=== PATIENT | male | born 1985 | race Caucasian/White ===

== ENCOUNTER 2021-02-24 09:47 | Outpatient (CLI) | payer OTHER, SELFPAY ==
--- NOTE | 2021-02-24 09:55 | MR_ITS ---
WS: [id number] MRI THORACIC SPINE noncontrast. HISTORY: BACK PAIN COMPARISON: None available. TECHNIQUE: Multiplanar sequences are performed in sagittal and axial planes. Normal posterior thoracic alignment. Mild disc space narrowing and desiccation at T8-9 and T9-10. No marrow edema or fractures. Signal within the cord is normal. T1-2: Normal. T2-3: Normal. T3-4: Normal. T4-5: Normal. T5-6: Normal. T6-7: Normal. T7-8: Normal. T8-9: Central disc protrusion is shallow with no cord contact. T9-10: Moderate size central disc protrusion extends to the LEFT also. Mild bilateral foraminal narr owing and mild facet arthritis. No central stenosis. T10-11: Small LEFT paracentral disc protrusion and mild bilateral facet arthritis. Mild foraminal na rrowing. T11-12: Very mild facet joint arthritis. Paravertebral soft tissues are normal. MR/MR thoracic spin wo con* [id number] IMPRESSION: 1. Degenerative disc disease at T8-9 and T9-10. 2. Small disc protrusions at T8-9, T9-T10 and T10-11 as above. 3. Mild facet joint arthritis from T9-T10 to T11-12. 4. No acute fracture.
== END 2021-02-24 09:48 | disposition home or self-care (01) ==
LOC: RADSHAW 09:50
PROVIDERS: Visit Provider Family Medicine
DX: M51.34 Other intervertebral disc degeneration, thoracic region (principal); M51.24 Other intervertebral disc displacement, thoracic region; M47.814 Spondylosis without myelopathy or radiculopathy, thoracic region
CPT/HCPCS: 72146

== ENCOUNTER 2021-07-04 12:19 | Outpatient (CLI) | payer OTHER, SELFPAY ==
--- NOTE | 2021-07-04 12:29 | US_ITS ---
WS: [id number] THYROID ULTRASOUND (TI-RADS CRITERIA) History: Hypothyroid.. Technique: Ultrasound examination of the thyroid and adjacent soft tissues is performed. FINDINGS: Right lobe: 4.5 cm x 1.2 cm x 1.5 cm. Volume: 4.1 cm3. Small gland with heterogeneity and lobulated contours. Mixed echogenicity but no discrete well-formed . Lymph nodes: None. Left lobe: 4.5 cm x 1.4 cm x 1.8 cm. Volume: 5.8 cm3. Small shrunken heterogeneous gland with variable echogenicity throughout. There are several nodules. The largest nodule in the mid gland posteriorly a vague hypoechoic rim. The remaining nodules are sub centimeter. Lymph nodes: Small benign-appearing NODULE: Labeled #3 Size: 1.2 x 1.1 x 1.6 cm. Location: Mid posterior Composition: Solid/almost completely solid (2) Echogenicity: Isoechoic (1) Shape: Not taller than wide (0) Margins: Smooth (0) Echogenic foci: None (0) ACR TI-RADS total points: 3 Isthmus: 0.2 cm. US/US thyroid [id number] Impression: TR3 Recommendation:Ultrasound follow-up. Ultrasound follow-up recommended yearly 1, 3 and 5 years. If thyroid nodule(s) change on follow-up examinations the recommendations will be altered as necessary.
== END 2021-07-04 12:20 | disposition home or self-care (01) ==
LOC: RAD 12:20
PROVIDERS: Visit Provider Family Medicine
DX: E03.9 Hypothyroidism, unspecified (principal)
CPT/HCPCS: 76536

== ENCOUNTER → 2021-09-05 10:10 | Outpatient (BNVA) | payer OTHER, SELFPAY | PROVIDERS: Referring Provider Family Medicine; Visit Provider Internal Medicine | DX: E03.9 Hypothyroidism, unspecified (principal); E04.1 Nontoxic single thyroid nodule | CPT/HCPCS: 99204 ==

== ENCOUNTER 2021-10-17 16:06 | Outpatient (CLI) | payer OTHER, SELFPAY ==
[2021-10-17 17:10] LABS: Sperm Present Sperm Not Present
== END 2021-10-17 16:07 | disposition home or self-care (01) ==
PROVIDERS: Visit Provider Urology
DX: Z98.52 Vasectomy status (principal)
CPT/HCPCS: 89310

== ENCOUNTER 2021-10-17 16:25 | Outpatient (CLI) | payer OTHER, SELFPAY ==
[2021-10-19 13:24] LABS: Thyroglobulin AB 1 IU/mL (< or = 1); Thyroid Peroxidase Antobodies 482 IU/mL (<9)
== END 2021-10-17 16:26 | disposition home or self-care (01) ==
PROVIDERS: Visit Provider Internal Medicine
DX: E03.9 Hypothyroidism, unspecified (principal)
CPT/HCPCS: 86376; 86800